=== PATIENT | female | born 1995 | race Caucasian/White ===

== ENCOUNTER 2018-04-15 11:56 | Emergency (ER) | payer MEDICAID ==
[~2018-04-15] VITALS: Ht 157.5 cm; Wt 81.6 kg
[2018-04-15 12:18] VITALS: BP_SYST 140
[2018-04-15 13:43] LABS: BILIRUBIN,URINE NEGATIVE (NEGATIVE); BLOOD, URINE NEGATIVE (NEGATIVE); CLARITY/URINE CLEAR (CLEAR); COLOR,URINE YELLOW (YELLOW); GLUCOSE,URINE NEGATIVE (NEGATIVE); KETONES,URINE NEGATIVE (NEGATIVE); LEUKOCYTE ESTERASE ,URINE NEGATIVE (NEGATIVE); NITRITE, URINE NEGATIVE (NEGATIVE); PH,URINE 5.5 (5.0-8.0); PROTEIN URINE NEGATIVE (NEGATIVE); UROBILINOGEN,URINE 0.2 (0.2-1.0)
[2018-04-15 15:08] VITALS: BP_SYST 140
== END 2018-04-15 15:08 | disposition home or self-care (01) ==
LOC: SED 11:56
DX: J02.8 Acute pharyngitis due to other specified organisms (principal); H66.92 Otitis media, unspecified, left ear; R03.0 Elevated blood-pressure reading, without diagnosis of hypertension
CPT/HCPCS: 36415; 81003; 86403; 87081; 99284

== ENCOUNTER 2018-09-13 21:41 | Emergency (ER) | payer MEDICAID ==
[~2018-09-13] VITALS: Ht 157.5 cm; Wt 86.2 kg
[2018-09-13 21:50] VITALS: BP_SYST 128
--- NOTE | 2018-09-13 21:50 | NUR ---
PROVIDED WITH URINE CUP FOR URINE SAMPLE COLLECTION
--- NOTE | 2018-09-13 22:29 | NUR ---
Patient to ER bed 4 to gown for evaluation. Side rails up.
--- NOTE | 2018-09-13 22:40 | NUR ---
Patient came in complaining of ABD pain that started this morning. Pt says that she has nausea and thinks it may be related to something she ate yesterday. Denies fever, chills, pain while urinating. No previous medical history. NKDA. No other complaints/injuries noted. Will cont. to monitor.
--- NOTE | 2018-09-13 22:45 | NUR ---
# 22 gauge angiocath placed to R forearm. Use of asceptic technique. Opsite placed over site. Blood return noted. Blood for lab drawn from site. Flushed with 10 cc of normal saline. No evidence of infiltration noted. Patient tolerated well.
--- NOTE | 2018-09-14 00:22 | NUR ---
ER at bedside examining patient.
[2018-09-14] MEDS ORDERED: MORPHINE 2 MG/ML INJ. SYRINGE IM ONE (00:45)
[2018-09-14] MEDS ORDERED: ONDANSETRON HCL 4 MG/2 ML VIAL IVP ONE (00:45)
[2018-09-14] MEDS ORDERED: NACL 0.9% 1,000 ML IV ONE (00:45)
[2018-09-14 01:03] LABS: BASOPHILS # (AUTO) 0.1 K/uL (0.0-0.2); BASOPHILS % (AUTO) 0.7 % (0.0-2.0); EOSINOPHILS % (AUTO) 0.3 % (0.0-4.0); HEMATOCRIT 42.7 % (36-48); HEMOGLOBIN 14.2 g/dL (12.0-16.0); LYMPHOCYTES % (AUTO) 11.3 % (20.5-51.5); MEAN CORPUSCULAR HEMOGLOBIN 31 pg (27-31); MEAN CORPUSCULAR HGB CONC 33 % (32-36); MEAN CORPUSCULAR VOLUME 94 fL (79.0-98.0); MONOCYTES # (AUTO) 0.2 K/uL (0.0-1.0); MONOCYTES % (AUTO) 2.6 % (1.7-9.3); NEUTROPHILS # (AUTO) 7.5 K/uL (1.8-7.7); NEUTROPHILS % (AUTO) 85.1 % (40.0-70.0); PLATELET COUNT (AUTO) 352 K/uL (130-430); RED BLOOD CELL COUNT(AUTO) 4.56 MIL/uL (4.2-6.2); RED CELL DISTRIBUTION WIDTH 13.2 % (9.0-15.0); WHITE BLOOD COUNT (AUTO) 8.8 K/uL (4.8-10.8)
[2018-09-14 01:04] LABS: BILIRUBIN,URINE NEGATIVE (NEGATIVE); BLOOD, URINE NEGATIVE (NEGATIVE); CLARITY/URINE CLEAR (CLEAR); COLOR,URINE YELLOW (YELLOW); GLUCOSE,URINE NEGATIVE (NEGATIVE); KETONES,URINE TRACE (NEGATIVE); LEUKOCYTE ESTERASE ,URINE NEGATIVE (NEGATIVE); NITRITE, URINE NEGATIVE (NEGATIVE); PROTEIN URINE NEGATIVE (NEGATIVE); UROBILINOGEN,URINE 0.2 (0.2-1.0)
[2018-09-14 01:05] LABS: CALCIUM 8.9 mg/dL (8.4-11.0); CREATININE 0.84 mg/dL (0.55-1.30); POTASSIUM 3.6 mmol/L (3.5-5.1)
[2018-09-14 01:11] LABS: ALBUMIN 3.8 g/dL (3.4-4.8); TOTAL BILIRUBIN 0.5 mg/dL (0.0-1.0)
[2018-09-14 01:12] LABS: INR 1.1 (0.8-1.2); PROTHROMBIN TIME 11.1 SECS (9.5-12.5)
--- NOTE | 2018-09-14 01:15 | NUR ---
Pt medicated with morphine IVP, zofran IVP and fluids per MD order. Tolerating well. Will cont. to monitor.
--- NOTE | 2018-09-14 02:00 | NUR ---
pt resting in bed comfortably, no acute distress.
--- NOTE | 2018-09-14 03:00 | NUR ---
Pt resting in bed comfortably with Mother at bedside.
[2018-09-14] MEDS ORDERED: KETOROLAC TROMETHAMINE 30 MG VIAL IVP ONE (04:00)
--- NOTE | 2018-09-14 04:01 | NUR ---
Pt medicated with Toradol IVP per MD order. Tolerated well. Will cont. to monitor.
[2018-09-14] MEDS ORDERED: MORPHINE 4 MG/ML INJ. SYRINGE IVP ONE (04:30)
[2018-09-14 05:01] VITALS: BP_SYST 128
--- NOTE | 2018-09-14 05:01 | NUR ---
Patient given written and verbal discharge instructions and verbalizes understanding. ER MD Dr. Dick discussed with patient the results and treatment provided. Patient in stable condition. ID arm band removed. IV catheter removed intact and dressing applied, no active bleeding. Rx of zofran given. Patient educated on pain management and to follow up with PMD within 2-3 days. Pain Scale 0/10. Opportunity for questions provided and answered. Medication side effect fact sheet provided.
== END 2018-09-14 05:01 | disposition home or self-care (01) ==
LOC: SED 21:41
DX: K29.70 Gastritis, unspecified, without bleeding (principal); R11.2 Nausea with vomiting, unspecified; M79.10 Myalgia, unspecified site
CPT/HCPCS: 36415; 80053; 81003; 81025; 82150; 83690; 85025; 85610; 96361; 96374; 96375; 99283; J1885; J2270; J2405; J7030